=== PATIENT | male | born 1955 | race African-American/Black ===

== ENCOUNTER 2017-02-09 10:16 | Outpatient (CLI) | payer BC ==
[2017-02-09 11:21] LABS: Anion Gap 9 mmol/L (10-20); BUN (Urea Nitrogen) 10 mg/dL (8.4-25.7); Calc. Creatinine Clearance 0 mL/min (70-130); Calcium 9.7 mg/dL (7.8-10.44); Carbon Dioxide 27 mmol/L (22-29); Chloride 107 mmol/L (98-107); Estimated GFR-MDRD Greater than 90
[2017-02-09 11:49] LABS: Bilirubin Negative (Negative); Blood, Urine Small (Negative); Glucose, Urine (Dipstick) Negative (Negative); Ketone, Urine Negative (Negative); Nitrite Negative (Negative); Protein, Urine (Dipstick) Negative (Neg-Trace)
[2017-02-09 11:57] LABS: Bacteria/HPF None Seen HPF (None Seen); Hyaline Casts/LPF 0-3 HYALINE CAST LPF (0-3 Hyaline); Squamous Epithelial 0-3 HPF (0-3)
--- NOTE | 2017-02-09 14:03 | CT ---
CT ABDOMEN AND PELVIS WITH AND WITHOUT IV CONTRAST CT CHEST WITH IV CONTRAST: Date: 02/09/17 HISTORY: Microscopic hematuria. COMPARISON: 02/04/07. FINDINGS: Each renal collecting system and ureter are decompressed without stone evident. No filling defects a re apparent within the urinary system on the delayed images. The kidneys have a normal appearance wi thout mass apparent. No parenchymal lung abnormalities or mediastinal adenopathy are visible. There is calcification in t he arterial structures. The liver, spleen, adrenal glands, and pancreas are within normal limits. Ol d right posterior rib fractures are evident. Diverticula arise from the colon without adjacent infla mmation. There is dystrophic calcification in the prostate gland. IMPRESSION: 1. No urinary tract abnormalities are demonstrated to explain hematuria. 2. Atherosclerosis. 3. Diverticulosis. No evidence of diverticulitis. POS: [facility]
[2017-02-09] MEDS ORDERED: Iopamidol 370 76% 100 ML VIAL ONE (15:01)
== END 2017-02-09 10:17 | disposition home or self-care (01) ==
LOC: CT 10:16
PROVIDERS: ATTEND Urology
DX: R31.29 Other microscopic hematuria (principal); I70.90 Unspecified atherosclerosis; K57.90 Diverticulosis of intestine, part unspecified, without perforation or abscess without bleeding
CPT/HCPCS: 74178; 80048; 81001; 87086

== ENCOUNTER 2024-04-09 11:02 | Outpatient (CLI) | payer MEDICARE | END 2024-04-09 11:03 | disposition home or self-care (01) | LOC: BICMRI 11:02 | PROVIDERS: ATTEND Family Medicine | DX: M79.662 Pain in left lower leg (principal); M47.815 Spondylosis without myelopathy or radiculopathy, thoracolumbar region; M47.816 Spondylosis without myelopathy or radiculopathy, lumbar region; M47.817 Spondylosis without myelopathy or radiculopathy, lumbosacral region | CPT/HCPCS: 72148 ==